=== PATIENT | male | born 1955 | race African-American/Black ===

== ENCOUNTER 2023-04-01 12:17 | Outpatient (CLI) | payer MEDICARE, SELFPAY ==
--- NOTE | ~2023-04-01 | PE_ITS ---
EXAMINATION: PET_PETPSMAST_PT DATE: 04/01/2023 14:20 INDICATION: Prostate cancer TECHNIQUE: 8.785 mCi of pipflufolastat F-18 (18-F-DCFPyL) was administered i.v. Low dose computed to mography (CT) images were acquired from the base of the brain to the base of the brain to the proxima l thighs for attenuation correction and anatomic localization. Positron emission tomography (PET) homero ges were acquired in the same distribution beginning 85 minutes after injection. Images including fus ed PET/CT images were reconstructed in axial, coronal, and sagittal planes. Automated exposure contro l technique was employed. The dose-length product was 501.65mGy-cm. COMPARISON: None FINDINGS: Head/neck: Typical pattern of symmetric physiologic increased activity in the lacrimal, parotid and submandibula r glands as well as along the mucosa of the nasal and oral cavities, the nazario-, naso- and hypopharynx, the glottis and esophagus. There is also a typical pattern of symmetric tiny foci of mild likely phy siologic neural ganglia uptake at a few bilateral cervical neural foramina. No pathologically enlarge d cervical lymphadenopathy or suspicious foci of increased uptake in the visualized head or neck. Chest: Suggestion of subtle emphysema although specificities decreased by small amount of respiratory motion . Dependent atelectasis in the bilateral lower lobes. No suspicious pulmonary nodules, pneumonia, pul monary edema or pleural effusion. Heart size is normal. No pericardial effusion. Thoracic aorta is no rmal in caliber. No pathologically enlarged or PSMA avid thoracic lymphadenopathy. Abdomen/pelvis/proximal thighs: Physiologic renal accumulation and excretion of activity in the kidneys, bladder and along portions o f ureters. Prostatomegaly with band of prominent increased PSMA activity extending approximately 5 cm AP anterior to posteriorly along the inferolateral margin of the prostate with the greatest FDG upta ke posteriorly with maximal SUV of 23.2. There is a subcentimeter focus of mild uptake with maximal S UV of 7.8 at the left posterior margin of the prostate. Normal degree and slightly heterogenous patte rn of increased uptake throughout the liver and spleen without radiologic correlate or dominant PSMA avid lesion. The gallbladder, pancreas and bilateral adrenal glands are normal. Moderate uptake scatt ered throughout the bowels with typical duodenal and proximal jejunal predominance and without radiol ogic correlate, also likely physiologic. No other abnormal foci of increased uptake or pathologically enlarged lymphadenopathy in the abdomen, pelvis or proximal thighs. Musculoskeletal: There are bridging osteophytes at multiple levels throughout the spine consistent with diffuse idiopa thic skeletal hyperostosis (DISH). Small indolent appearing lytic lesion with thin sclerotic margins and without associated PSMA activity at the T7 vertebral body most likely related to a hemangioma. No other suspicious lytic, blastic or PSMA avid bone lesions. IMPRESSION: 1. Prostatomegaly with regions of increased PSMA activity most prominent on the right consistent with provided history of prostate cancer. No evident metastatic disease. Reviewed, dictated and finalized at location A. [employer] IMPRESSION: 1. Prostatomegaly with regions of increased PSMA activity most prominent on the right consistent with provided history of prostate cancer. No evident metastat ic disease.
== END 2023-04-01 12:18 | disposition home or self-care (01) ==
LOC: ANHIMG 12:25
PROVIDERS: PCP Urology; Visit Provider Urology
DX: C61 Malignant neoplasm of prostate (principal)
CPT/HCPCS: 78815; A9595